=== PATIENT | male | born 1995 | race Hispanic/Latino ===

== ENCOUNTER 2024-04-30 20:32 | Emergency (ER) | payer SELFPAY ==
[2024-04-30] VITALS (7 sets, daily range): BP systolic 119–140; BP diastolic 72–84; PULSE 71–105; RESP 13–99; TEMP 36.2–36.6; O2SAT 15–100; BMI 24.5
[2024-04-30] MEDS: fentaNYL 100 MCG/2 ML Ampul 50 MCG IV (21:07)
[2024-04-30] MEDS: Etomidate 20 MG/10 ML Vial 10 MG IV (21:07)
--- NOTE | 2024-04-30 21:15 | RAD_ITS ---
STUDY: X-RAY - LEFT ANKLE REASON FOR EXAM: Male, 28 years old. injury TECHNIQUE: 3 view(s) of the ankle. COMPARISON: None. FINDINGS: Splint obscures bone detail. There is a fracture of the lateral malleolus, currently in anatomic alignment and position. No other fractures are seen. Normal ankle joint. Normal visualized talus and calcaneus. The visualized subtalar, talonavicular, calcaneocuboid and tarsal articulations are normal. The soft tissue structures are unremarkable. RAD/Ankle min 3 Views IMPRESSION: There is a fracture of the lateral malleolus, currently in anatomic alignment and position. Electronically Signed: Geo Singh MD at 21:40 EDT ,
--- NOTE | 2024-04-30 22:29 | ED.VIS.LOWEX ---
HPI History of Present Illness Chief Complaint: Lower Extremity Injury Informant: patient, spouse/S.O., EMS and other (tyre retreader (mostly phone apps)) Limited: language barrier Occured/Mechanism Mechanism/Context: Yes other see comment below Onset/Context/Timing Onset: Today Context: Sudden Onset Timing: Continuous Location: Left ankle Current Severity: Severe Maximum Severity: Severe Associated Symptoms Associated Symptoms: Positive for Loss of Funtion Narrative Narrative: Healthy 28-year-old man from [place] who has been here for a month or 2 in the [facility] and speaks [place] only, states he was playing soccer tonight and was involved in an aggressive tackle in which he injured his left ankle and sustained a deformity that is severely painful and that he is not able to put weight on. No other injuries. PFSH PFSH Medical History no medical history no medical history Home Medications ?Medication ?Instructions ?Recorded ?Last Taken ?Type hydrocodone-acetaminophen 5-325mg 1 tab PO Q6H PRN PRN Pain 3 days 04/30/24 Unknown Rx 5mg-325mg #10 TABLETS Allergy/AdvReac Type Severity Reaction Status Date / Time No Known Allergies Allergy Verified 04/30/24 20:44 Family History no significant family his Surgical History no surgical history Social History Smoking Status: Current some day smoker tobacco type: e-cigarettes ROS ROS ED Constitutional Constitutional ED: Denies chills or fever(s) Musculoskeletal Musculoskeletal: Reports extremity pain; Denies neck pain Integumentary Denies Abrasions, rash or wounds Neurologic Neurologic: Denies paresthesias or weakness EXAM Physical Exam Const Vital Signs: 04/30/24 20:34 04/30/24 21:08 04/30/24 21:11 Temperature 97.3 F L 97.8 F Temperature Source Temporal Pulse Rate 89 96 Pulse Rate [1 (Initial Baseline)] 105 H Pulse Rate [2] 101 H Respiratory Rate 16 13 Respiratory Rate [1 (Initial Baseline)] 25 H Respiratory Rate [2] 99 H Blood Pressure 125/73 H 136/81 H Blood Pressure [1 (Initial Baseline)] 138/78 H Blood Pressure [2] 140/84 H Blood Pressure Mean 90 Pulse Ox 100 100 Oxygen Delivery Method Room Air Room Air 04/30/24 21:19 04/30/24 21:24 04/30/24 21:29 Temperature Temperature Source Pulse Rate Pulse Rate [1 (Initial Baseline)] Pulse Rate [2] Respiratory Rate Respiratory Rate [1 (Initial Baseline)] Respiratory Rate [2] Blood Pressure Blood Pressure [1 (Initial Baseline)] Blood Pressure [2] Blood Pressure Mean Pulse Ox Oxygen Delivery Method Room Air Room Air Room Air 04/30/24 22:18 Temperature 97.1 F L Temperature Source Pulse Rate 71 Pulse Rate [1 (Initial Baseline)] Pulse Rate [2] Respiratory Rate 19 H Respiratory Rate [1 (Initial Baseline)] Respiratory Rate [2] Blood Pressure 127/72 H Blood Pressure [1 (Initial Baseline)] Blood Pressure [2] Blood Pressure Mean 90 Pulse Ox 98 Oxygen Delivery Method Positive well nourished and well developed General Appearance ED: well developed and NAD Neck full ROM and supple Back/Spine normal ROM and normal to inspection Extremity Extremity Narrative: Obvious deformity of the left ankle, with the foot in external rotation and the ankle tenting anteriorly without break in the skin or bleeding. Soccer shoe is on, tied tightly, including a built-in sock/cuff over the ankle. Neuro oriented x3, no focal motor deficits and no sensory deficits noted Sensorium / Orientation: alert Psych mental status grossly normal and thought process normal Skin no wounds Rashes: no rashes MDM MDM MDM Narrative Medical decision making narrative: Given the fact that the patient's shoe and sock and the cuff of the shoe are still on and there is a deformity, I am not able to evaluate for distal perfusion. Therefore instead of waiting for x-ray, the patient had an IV placed by EMS, and I was able to discern that he has been n.p.o. for just over 6 hours, so I consented he and girlfriend who was helping communicate with the patient using tyre retreader applications, for sedation and closed reduction and splinting. See the procedure note. There is no orthopedics on-call but podiatry is available. I discussed with Dr. Wall, has three-view x-ray series of the left ankle which were performed after the closed reduction on my interpretation show what appears to be a Huff B fracture with good reduction obtained, he agrees and states that the patient may be able to be managed nonoperatively. Therefore I spoke with the patient about being discharged on crutches and prescription for analgesics which they are amenable to and following up. Radiography Diagnostic Testing: Clinical Impression(s) from Imaging Studies Ankle X-Ray 04/30/24 21:15 IMPRESSION: There is a fracture of the lateral malleolus, currently in anatomic alignment and position. Electronically Signed: Geo Singh MD at 21:40 EDT , Management Discussion w/another healthcare provider: Clinical Research Technician ( Podiatrmerrill Wall) Procedures Lower Extremity Splints Lower Extremity Splint: Orthoglass (Short leg with posterior and stirrup) Splint Fabrication: Fabricated Location: Left (Neurovascularly intact distally after placement) Procedural Sedation 1 (Initial Baseline): Consent Signed: Yes Any Problems With Anesthesia: No You/Your family experience fever (hyperthermia) w/anesthesia: No Sedation medication: Etomidate Dose: 10 Route: IV Total Moderate Sedation Units: 8 Maliampati Score: Class I ASA Classification: I Comment:: On monitor with prophylactic nasal cannula oxygenation and IV fluids, end-tidal CO2 monitoring, airway equipment at the bedside. Tolerated well with no complications. Other Procedures Procedure(s): Closed reduction left ankle fracture dislocation: After sedating the patient as above, I removed the patient's soccer shoe and sock, and immediately manually reduced the deformity simply by applying internal rotational force to the foot and making it straight. This was performed in a single movement. He was neurovascular intact distally after the reduction with strong 2+/4 dorsalis pedis pulse. Critical Care Time Critical Care Time: Yes Critical care time (excluding procedures): 30-74 minutes (33 min, not including procedure time), Including time spent:, Discussing w/Patient &/or Family/Automobile And Property Underwriter, Discussing w/Consultants and Performing Direct Patient Care at Bedside Discharge Plan Triage Chief Complaint: Lower Extremity Injury ED Provider: Farhat Ashford Dx/Rx/DC Orders Clinical Impression: Closed fracture dislocation of left ankle Instructions: Using Crutches: [id number], Splint Care, ED Ankle Fracture Prescriptions: New hydrocodone-acetaminophen 5-325 mg tablet 1 tab PO Q6H PRN PRN (Reason: Pain) 3 Days Qty: 10 0RF Primary Care Provider: Care Physician,No Primary Referrals: [facility],Hemal, DPM [Med Staff - Active Staff] - As soon as possible (Milo sánchez ludwin felicia) Care Physician,No Primary [Primary Care Provider] - Print Language: [place] Disposition Disposition: Home, Self Care Discharge Date/Time: 04/30/24 22:48
== END 2024-04-30 22:48 | disposition home or self-care (01) ==
PROVIDERS: Emergency Provider Emergency Medicine; Visit Provider Emergency Medicine
DX: S82.62XA Displaced fracture of lateral malleolus of left fibula, initial encounter for closed fracture (principal); F17.210 Nicotine dependence, cigarettes, uncomplicated; W50.0XXA Accidental hit or strike by another person, initial encounter; Y93.66 Activity, soccer; Y92.322 Soccer field as the place of occurrence of the external cause
CPT/HCPCS: 27788; 73610; 99284; J7030; A4216